=== PATIENT | female | born 1995 | race Two or more races ===

== ENCOUNTER 2018-01-26 10:55 | Emergency (ER) | payer MEDICAID, OTHER ==
[~2018-01-26] VITALS: Ht 165.1 cm; Wt 95.3 kg
[~2018-01-26 10:55] MED LIST: ACETAMINOPHEN-1 EAC1 ORAL; CYCLOBENZAPRINE10 MG ORAL
[2018-01-26] MEDS ORDERED: birth control pill PO (11:02)
[2018-01-26 11:04] VITALS: BP 128/67
[2018-01-26] MEDS ORDERED: IBUPROFEN600 MG ORAL (12:20)
[2018-01-26 12:30] VITALS: BP 124/68
--- NOTE | 2018-01-26 12:33 | Diagnostic Imaging Report ---
Clinical Indication: Right wrist pain Technique: 3 views of the right wrist Comparison: None Findings: No acute fractures. No dislocations. No radiopaque foreign body. The joint spaces are preserved. Impression: Negative
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
== END 2018-01-26 14:00 | disposition home or self-care (01) ==
LOC: EMR 11:29
DX: S66.911A Strain of unspecified muscle, fascia and tendon at wrist and hand level, right hand, initial encounter (principal); V43.52XA Car driver injured in collision with other type car in traffic accident, initial encounter; Y92.410 Unspecified street and highway as the place of occurrence of the external cause; J45.909 Unspecified asthma, uncomplicated
CPT/HCPCS: 99283

== ENCOUNTER 2018-06-01 22:35 | Emergency (ER) | payer MEDICAID ==
[~2018-06-01] VITALS: Ht 162.6 cm; Wt 90.7 kg
[~2018-06-01 22:35] MED LIST changes: +IBUPROFEN600 MG ORAL; +birth control pill PO
--- NOTE | 2018-06-01 23:00 | NUR ---
ED Nurse Note: Pt twist L ankle for a week when going down the stair. pain level 8/10. no visible traumatic injury noted, no deformities noted. pt cap refill is less than 3, pulse and sensations noted on all 4 extremities. pt stated she may have hit her head during fall, but pt denies LOC.
--- NOTE | 2018-06-01 23:01 | Emergency Room Report ---
History of Present Illness General Chief Complaint: Lower Extremity Injury Source: Patient Present Illness HPI Patient is a 23-year-old female presented after increased left ankle pain. Patient reports having inverted her ankle approximately 1 week ago. She reports having pain to the ankle and foot. She denies any numbness. Patient states that she was walking downstairs at the time of injury. She reports having some continued pain and presented to the emergency permit for further evaluation. She denies any other locations of injury. Allergies: Coded Allergies: No Known Allergies (Unverified , 09/24/14) Patient History Last Menstrual Period: May 04 2018 Now: No Reviewed Nursing Documentation: PMH: Agreed; PSxH: Agreed Nursing Documentation-PMH Hx Asthma: Yes Review of Systems All Other Systems: negative except mentioned in HPI Physical Exam Vital Signs Date Time Temp Pulse Resp B/P (MAP) Pulse Ox O2 Delivery O2 Flow Rate FiO2 06/01/18 22:46 98.1 82 20 103/65 99 Room Air General Appearance: well appearing, no apparent distress, alert, GCS 15, obese Head: normocephalic, atraumatic ENT: hearing grossly normal, normal voice Neck: full range of motion, supple Respiratory: lungs clear, no respiratory distress, speaking full sentences Gastrointestinal: normal inspection, non tender, soft Musculoskeletal: no calf tenderness Neurologic: normal gait Psychiatric: mood/affect normal Skin: no rash Medical Decision Making Diagnostic Impression: Primary Impression: Ankle sprain ER Course Patient presented for leg and ankle pain. Differential diagnosis included was not limited to vascular insufficiency, fracture, osteomyelitis, sprain, deep venous thrombosis. X-ray imaging of the ankle was obtained. X-ray imaging of the left ankle 3 views interpreted by me showed normal bony alignment without evident fracture. X-ray of the left foot 3 views interpreted by me showed normal bony alignment without evident fracture. Patient was placed in an Sree wrap and given crutches. She is given prescription for ibuprofen. She was advised to keep her leg elevated. Labs Test 06/01/18 23:00 Urine HCG, Qualitative Negative (NEGATIVE) Last Vital Signs Date Time Temp Pulse Resp B/P (MAP) Pulse Ox O2 Delivery O2 Flow Rate FiO2 06/01/18 22:46 98.1 82 20 103/65 99 Room Air Status: improved Disposition: HOME, SELF-CARE Condition: Stable Scripts Ibuprofen* (MOTRIN*) 600 Mg Tablet 600 MG ORAL Q8H PRN for For Pain, #30 TAB 0 Refills Prov: Ciro Smith MD 06/02/18 Ciro Smith MD Jun 01, 2018 23:01
[2018-06-02] MEDS ORDERED: IBUPROFEN600 MG ORAL (00:36)
[2018-06-02 00:39] VITALS: BP 127/76
--- NOTE | 2018-06-02 00:39 | NUR ---
ER DISCHARGE NOTE: Patient is cleared to be discharged per ERMD, pt is aox4, on room air, with stable vital signs. pt was given dc and prescription instructions, pt was able to verbalize understanding, pt id band removed without complications. pt is able to ambulate with steady gait. pt took all belongings.
--- NOTE | 2018-06-02 10:37 | Diagnostic Imaging Report ---
Indication: Left foot pain after twisting injury 4 days ago Technique: 3 views left foot Comparison: none Findings: No acute fractures. No dislocations. The joint spaces are preserved. No radiopaque foreign body Impression: Negative
--- NOTE | 2018-06-02 10:38 | Diagnostic Imaging Report ---
Indication: Left ankle pain after twisting injury 4 days ago Technique: 3 views of the left ankle Comparison: none Findings: Bony alignment is normal. No acute fractures. No dislocations. The joint spaces are preserved Impression: Negative
== END 2018-06-02 00:39 | disposition home or self-care (01) ==
LOC: EMR 23:15
DX: S93.402A Sprain of unspecified ligament of left ankle, initial encounter (principal); X50.1XXA Overexertion from prolonged static or awkward postures, initial encounter; Y92.9 Unspecified place or not applicable; J45.909 Unspecified asthma, uncomplicated
CPT/HCPCS: 81025; 99283